=== PATIENT | female | born 1975 | race Caucasian/White ===

== ENCOUNTER → 2018-05-23 | Outpatient (CLI) | payer BC, OTHER ==
[~2018-05-23] MED LIST: BIRTH CONTROL; IBP600T1 PO; LVT.025T PO; OXYC-12 PO; TRAM50TA2 PO
--- NOTE | 2018-05-23 15:31 | Diagnostic Imaging Report ---
INDICATION: Routine screening. No prior mammograms are available for comparison. This is a baseline study. 2-D and 3-D bilateral screening mammography was performed with CAD. Both breasts are heterogeneously dense, limiting the sensitivity of mammography. There is a fairly well-circumscribed density in the medial aspect of the left breast inferiorly. Additional views are recommended. Right breast is unremarkable. No suspicious calcifications are seen. Axillae are unremarkable. IMPRESSION: BI-RADS zero Left breast density lower inner aspect. Further evaluation with additional views is recommended. ACR BI-RADS Category 0: Incomplete. (Needs additional imaging evaluation). Result letter will be mailed to the patient. Note: At least 10% of breast cancer is not imaged by mammography. Dictated by: Dictated on workstation # [id number]
== END ==
LOC: RAD 08:41
PROVIDERS: ATTEND Internal Medicine
DX: Z12.31 Encounter for screening mammogram for malignant neoplasm of breast (principal); R92.8 Other abnormal and inconclusive findings on diagnostic imaging of breast
CPT/HCPCS: 77067

== ENCOUNTER → 2018-06-11 | Outpatient (CLI) | payer BC, OTHER ==
--- NOTE | 2018-06-11 14:05 | Diagnostic Imaging Report ---
Indication: Left breast density. Patient presents for additional views. Correlation is made with recent screening study from 05/23/2018. Unilateral left 2-D and 3-D diagnostic mammography was performed including spot compression CC and MLO as well as conventional 90 degree lateral view. Left breast is heterogeneously dense, limiting the sensitivity of mammography. There is a tiny circumscribed nodule in the medial left breast separate from the density that was called back and consistent with a cyst. At the area of density this tissue appears to show normal dispersion and is most consistent with superimposed tissue. No underlying mass is seen. No suspicious calcifications are identified. IMPRESSION: BI-RADS category 2 Additional views fail to demonstrate a suspicious discrete mass. Patient may return to routine annual screening mammography. ACR BI-RADS Category 2: Benign findings. Result letter will be mailed to the patient. Note: At least 10% of breast cancer is not imaged by mammography. Dictated by: Dictated on workstation # [id number]
== END ==
LOC: RAD 13:20
PROVIDERS: ATTEND Internal Medicine
DX: R92.2 Inconclusive mammogram (principal)

== ENCOUNTER 2018-07-14 05:36 | Outpatient (CLI) | payer BC, OTHER ==
[~2018-07-14] VITALS: Ht 180.3 cm; Wt 78.0 kg
[2018-07-14] MEDS ORDERED: LEVO75TA6 PO (12:12)
== END 2018-07-14 12:16 | disposition home or self-care (01) ==
LOC: PREOP 05:36
PROVIDERS: ATTEND Specialist
DX: Z01.818 Encounter for other preprocedural examination (principal)

== ENCOUNTER 2018-07-18 06:24 | Day surgery (SDC) | payer BC, OTHER ==
[~2018-07-18] VITALS: Ht 180.3 cm; Wt 78.0 kg
[~2018-07-18 06:24] MED LIST changes: +LEVO75TA6 PO
[2018-07-18 06:31] VITALS: BP 127/86
[2018-07-18] MEDS ORDERED: MOXIFLOXACIN OPHTH SOLN 5 MG/ML 0.3 ML SYRINGE OP ONE (06:45)
[2018-07-18] MEDS ORDERED: TIMOLOL MALEATE 0.5% 5 ML (TIMOPTIC) BTL OU PRN (06:45)
[2018-07-18] MEDS ORDERED: POVIDONE (BETADINE) OPHTH SOLN 5% 30 ML OP ONE (06:45)
[2018-07-18] MEDS ORDERED: LIDOCAINE PF 1% 2 ML AMP IR PRN (06:45)
[2018-07-18] MEDS: TETRACAINE 0.5% OPHTH SOLN 4 ML BTL (SINGLE DOSE ONLY) OU PRN ×4 (06:47→07:07)
[2018-07-18] MEDS: CYCLOPENTOLATE 1% (CYCLOGYL) 2 ML DROPS OP SCH ×3 (06:55→07:07)
[2018-07-18] MEDS: PHENYLEPHRINE 10% OPHTH (NEO-SYN) 5 ML BTL OU SCH ×3 (06:55→07:07)
[2018-07-18] MEDS ORDERED: MIDAZOLAM 2 MG/2 ML (VERSED) VIAL ONE (07:13)
--- NOTE | 2018-07-18 07:30 | Ophthalmologist Pre-Op Note ---
Pre-Operative Progress Note H&P Reviewed The H&P was reviewed, patient examined and no changes noted. Date H&P Reviewed: Jul 18, 2018 Time H&P Reviewed: 07:30 Pre-Op Dx Cataract, Right Eye MATTHIEU STEWART MD Jul 18, 2018 07:30
--- NOTE | 2018-07-18 08:04 | Ophthalmology Operative Report ---
Cataract removal/placement IOL PREOPERATIVE DIAGNOSIS: Cataract Right Eye POSTOPERATIVE DIAGNOSIS: Cataract Right Eye PROCEDURE: Cataract removal and placement of posterior chamber implant, right eye SURGEON: Arnoldo Stewart ANESTHESIA: Topical with sedation COMPLICATIONS: None ESTIMATED BLOOD LOSS: Minimal DESCRIPTION OF PROCEDURE: After proper informed consent was obtained, the patient, a 42 female, was taken to the Operating Room and the right eye was anesthetized with tetracaine. The right eye was then prepped and draped in the usual manner. A wire lid speculum was placed. A paracentesis was made at the left hand position. Preservative free lidocaine was injected into the anterior chamber followed by viscoelastic. A clear corneal incision was made in the temporal position. A capsulorrhexis was preformed and the central nuclear and cortical material were removed. The posterior capsule was polished and Ryne [id number] 7.0 IOL was placed into the capsular bag. The residual viscoelastic was aspirated and balanced saline solution was injected into the anterior chamber. Moxifloxacin was injected into the anterior chamber. The wound was checked and found to be water tight. The patient tolerated the procedure well without complications. ARNOLDO STEWART MD Jul 18, 2018 08:04
[2018-07-18 08:11] VITALS: BP 123/87
[2018-07-18] MEDS ORDERED: acetaZOLAMIDE ER 500 MG CAP (DIAMOX SEQUELS) PO ONE (08:30)
--- NOTE | 2018-07-18 11:11 | Anesthesia-General Post-Op ---
MAC Patient Condition Mental Status/LOC: Same as Preop Cardiovascular: Satisfactory Nausea/Vomiting: Absent Respiratory: Satisfactory Pain: Controlled Complications: Absent Post Op Complications Complications None Follow Up Care/Instructions Patient Instructions None needed. Anesthesiology Discharge Order Discharge Order Patient is doing well, no complaints, stable vital signs, no apparent adverse anesthesia problems. No complications reported per nursing. MABEL MENA CRNA Jul 18, 2018 11:11
== END 2018-07-18 08:11 | disposition home or self-care (01) ==
LOC: SDC 06:24
PROVIDERS: ATTEND Specialist
DX: H25.11 Age-related nuclear cataract, right eye (principal); E03.9 Hypothyroidism, unspecified; Z79.899 Other long term (current) drug therapy

== ENCOUNTER 2018-07-29 05:46 | Outpatient (CLI) | payer BC, OTHER ==
[~2018-07-29] VITALS: Ht 180.3 cm; Wt 78.0 kg
== END 2018-07-29 14:35 | disposition home or self-care (01) ==
LOC: PREOP 05:46
PROVIDERS: ATTEND Specialist
DX: Z01.818 Encounter for other preprocedural examination (principal)

== ENCOUNTER 2018-08-01 06:15 | Day surgery (SDC) | payer BC, OTHER ==
[~2018-08-01] VITALS: Ht 180.3 cm; Wt 78.0 kg
[2018-08-01 06:15] VITALS: BP 113/80
--- OUTSIDE RECORDS SUMMARY | 2018-08-01 06:25 | XMS REPORT | Clinical Summary ---
Author Author User, [employer] Organization [facility] Address Unknown Phone Unavailable Allergies, Adverse Reactions, Alerts Allergy Name Reaction Description Start Date Severity Status Provider PENICILLIN Critical Active Ann Ta Conditions or Problems Problem Name Problem Code Onset Date Status Entry Date Provider Comment Standard Description Annotate THYROID NODULE 241.0 Resolved Ann Ta Nontoxic uninodular goiter HYPOTHYROIDISM, PRIMARY 244.9 Active Ann Ta Unspecified hypothyroidism WEIGHT GAIN, ABNORMAL 783.1 Active Ann Ta Abnormal weight gain OSTEOPENIA 733.90 Active Ann Ta Disorder of bone and cartilage, unspecified CERVICAL LYMPHADENOPATHY, RIGHT 785.6 Resolved Ann Ta Enlargement of lymph nodes WELL WOMAN V70.0 Active Ann Ta Routine general medical examination at a health care facility HEADACHE 784.0 Active Ann Ta Headache Medication List Medication Instructions Start Date Stop Date Generic Name NDC Status Provider Patient Instruction LEVOTHYROXINE SODIUM 75 MCG TABS 1 po daily LEVOTHYROXINE SODIUM 65703829302 Active Ann Ta PHENTERMINE HCL 37.5 MG CAPS 1 PO Daily PHENTERMINE HCL 94411128159 Active Ann Ta B COMPLETE TABS 1 PO daily B [id number]-[id number]-YV 38454029670 Active Ann Ta LOW-OGESTREL 0.3-30 MG-MCG TABS 1 PO daily NORGESTREL-ETHINYL ESTRADIOL 12675212547 No Longer Active Ann Ta BCP'S as directed BCP'S No Longer Active Ann Ta FEMCON FE 0.4-35 MG-MCG CHEW 1 po QD NORETHIN-ETH ESTRADIOL-FE 26379483348 No Longer Active Ann Ta Immunizations Vaccine Administration Date Value Standard Description Influenza vaccine given Done influenza virus vaccine, unspecified formulation Vital Signs Date Name Value Unit Range Description blood pressure, diastolic - 8462-4 75 mm[Hg] BP lucio blood pressure, systolic - 8480-6 130 mm[Hg] BP sys pulse rate E&M - 8867-4 60 /min Heart rate respiratory rate E&M - 9279-1 14 /min Resp rate temperature E&M 98.2 [degF] Body temperature weight E&M - 3141-9 186 [lb_av] Weight Measured Diagnostic Results Date Name Value Unit Range Description Clinical Lists Update: CBC,CMP,FLP,TSH,FREE T4 - Chemistry Estimated Glomerular Filtration Rate (calc) 71 mL/min/1.73m2 glucose, plasma fasting 89 mg/dL albumin, serum 4.3 g/dL alkaline phosphatase, serum 61 U/L urea nitrogen, blood 19 mg/dL calcium, serum 9.2 mg/dL chloride, serum 105 mmol/L cholesterol, serum 172 mg/dL cholesterol/HDL ratio, serum, percent 3.7 anion gap, serum 8 sodium, serum 137 mmol/L triglyceride, serum, fasting 72 mg/dL bilirubin, serum, total 0.9 mg/dL alanine aminotransferase (SGPT), serum 16 U/L aspartate aminotransferase (SGOT), serum 22 U/L protein, total, serum 7.1 g/dL potassium, serum 4.0 mmol/L LDL cholesterol, serum 112 mg/dL thyroid stimulating hormone, serum 1.25 u[iU]/mL HDL cholesterol, serum 46.0 mg/dL thyroxine, serum, free 0.81 ng/dL creatinine, serum 0.9 mg/dL carbon dioxide, venous blood 28.0 mmol/L Clinical Lists Update: CBC,CMP,FLP,TSH,FREE T4 - Hematology leukocyte count, blood 2.9 10*3/mm3 mean corpuscular volume, RBC 87 fL red blood cell distribution width 12.4 % hemoglobin, blood 13.3 g/dL platelet count 198 10*3/mm3 erythrocyte (RBC) count 4.56 10*6/mm3 hematocrit, blood 40 % Encounters Code Encounter Date Provider Facility CPT-75476 Ofc Vst, Est Level III 19:05:30 CDT Ann Ta DO, FACP CPT-71646 Ofc Vst, Est Level III 13:26:55 CDT Ann Ta DO, FACP CPT-53497 Ofc Vst, Est Level IV 13:41:00 CDT Ann Ta DO, FACP CPT-37307 Ofc Vst, Est Level III 11:49:38 CDT Ann Ta DO, FACP CPT-32965 Ofc Vst, Est Level IV 11:29:22 CDT Ann Ta DO, FACP CPT-00091 Ofc Vst, Est Level IV 10:04:42 CDT Ann Ta DO, FACP CPT-33508 Ofc Vst, Est Level III 10:04:19 CDT Ann Ta DO, FACP CPT-85049 Ofc Vst, Est Level IV 15:46:07 CDT Ann Ta DO, SCOTTP CPT-67587 Office Consult, Level III 14:30:38 CDT Ann Ta [facility] Procedures Code Procedure Name Date Entry Date Standard Description CPT-20987 Preventive, Est, (18-39) 10:29:18 CDT
--- OUTSIDE RECORDS SUMMARY | 2018-08-01 06:25 | XMS REPORT | Clinical Summary ---
Author Author User, [employer] Organization [facility] Address Unknown Phone Unavailable Allergies, Adverse Reactions, [...] MCG TABS 1 po daily LEVOTHYROXINE SODIUM 87165015997 Active Ann Ta PHENTERMINE HCL 37.5 MG CAPS 1 PO Daily PHENTERMINE HCL 12556912279 Active Ann Ta B COMPLETE TABS 1 PO daily B [id number]-ARCDKK-NU 44022713364 Active Ann Ta LOW-OGESTREL 0.3-30 MG-MCG TABS 1 PO daily NORGESTREL-ETHINYL ESTRADIOL 23177852388 No Longer Active Ann Ta BCP'S as directed BCP'S No Longer Active Ann Ta FEMCON FE 0.4-35 MG-MCG CHEW 1 po QD NORETHIN-ETH ESTRADIOL-FE 27765793380 No Longer Active Ann Ta Immunizations Vaccine [...] % Encounters Code Encounter Date Provider Facility CPT-55767 Ofc Vst, Est Level III 19:05:30 CDT Annidania Ta DO, FACP CPT-23132 Ofc Vst, Est Level III 13:26:55 CDT Annidania Ta DO, FACP CPT-20358 Ofc Vst, Est Level IV 13:41:00 CDT Ann Ta DO, FACP CPT-72838 Ofc Vst, Est Level III 11:49:38 CDT Ann Ta DO, FACP CPT-62881 Ofc Vst, Est Level IV 11:29:22 CDT Ann Ta DO, FACP CPT-18806 Ofc Vst, Est Level IV 10:04:42 CDT Ann Ta DO, FACP CPT-01931 Ofc Vst, Est Level III 10:04:19 CDT Ann Ta DO, FACP CPT-00242 Ofc Vst, Est Level IV 15:46:07 CDT Ann Ta DO, FACP CPT-51731 Office Consult, Level III 14:30:38 CDT Ann Ta [facility] Procedures Code Procedure Name Date Entry Date Standard Description CPT-22981 Preventive, Est, (18-39) 10:29:18 CDT
--- OUTSIDE RECORDS SUMMARY | 2018-08-01 06:25 | XMS REPORT | Clinical Summary ---
Author Author User, [employer] Organization [facility] [place] Address Unknown Phone Unavailable Allergies, Adverse Reactions, [...] Enlargement of lymph nodes WELL WOMAN V70.0 Resolved Ann Ta Routine general medical examination at a health care facility HEADACHE 784.0 Active Ann Ta Headache Medication List Medication Instructions Start Date Stop Date Generic Name NDC Status Provider Patient Instruction LEVOTHYROXINE SODIUM 75 MCG TABS 1 po daily LEVOTHYROXINE SODIUM 68301756273 Active Ann Ta PHENTERMINE HCL 37.5 MG CAPS 1 PO Daily PHENTERMINE HCL 78874498423 Active Ann Ta B COMPLETE TABS 1 PO daily B [id number]-[id number] 76517592711 Active Ann Ta LOW-OGESTREL 0.3-30 MG-MCG TABS 1 PO daily NORGESTREL-ETHINYL ESTRADIOL 20151520819 No Longer Active Ann Ta BCP'S as directed BCP'S No Longer Active Ann Ta FEMCON FE 0.4-35 MG-MCG CHEW 1 po QD NORETHIN-ETH ESTRADIOL-FE 31627840280 No Longer Active Ann Ta Immunizations Vaccine Administration Date Value Standard Description Influenza vaccine given Done influenza virus vaccine, unspecified formulation Vital Signs Date Name Value Unit Range Description blood pressure, diastolic - 8462-4 70 mm[Hg] BP lucio blood pressure, systolic - 8480-6 110 mm[Hg] BP sys pulse rate E&M - 8867-4 70 /min Heart rate respiratory rate E&M - 9279-1 14 /min Resp rate temperature E&M 98.4 [degF] Body temperature weight E&M - 3141-9 175 [lb_av] Weight Measured blood pressure, diastolic - 8462-4 75 mm[Hg] [...] % Encounters Code Encounter Date Provider Facility CPT-56717 Ofc Vst, Est Level III 21:31:20 CDT Ann Ta DO, FACP CPT-48842 Ofc Vst, Est Level III 19:05:30 CDT Ann Ta DO, FACP CPT-99163 Ofc Vst, Est Level III 13:26:55 CDT Ann Ta DO, FACP CPT-57387 Ofc Vst, Est Level IV 13:41:00 CDT Ann Xiao Ta Ann S Ta, DO, FACP CPT-44741 Ofc Vst, Est Level III 11:49:38 CDT Ann Ta DO, FACP CPT-84113 Ofc Vst, Est Level IV 11:29:22 CDT Ann Ta DO, FACP CPT-34616 Ofc Vst, Est Level IV 10:04:42 CDT Ann Ta DO, FACP CPT-07935 Ofc Vst, Est Level III 10:04:19 CDT Ann Ta DO, FACP CPT-00342 Ofc Vst, Est Level IV 15:46:07 CDT Ann Ta DO, FACP CPT-51101 Office Consult, Level III 14:30:38 CDT Ann Ta [facility] [place] Procedures Code Procedure Name Date Entry Date Standard Description CPT-72850 Preventive, Est, (18-39) 10:29:18 CDT
[2018-08-01] MEDS ORDERED: POVIDONE (BETADINE) OPHTH SOLN 5% 30 ML OP ONE (06:30)
[2018-08-01] MEDS ORDERED: TIMOLOL MALEATE 0.5% 5 ML (TIMOPTIC) BTL OU PRN (06:30)
[2018-08-01] MEDS ORDERED: LIDOCAINE PF 1% 2 ML AMP IR PRN (06:30)
[2018-08-01] MEDS ORDERED: MOXIFLOXACIN OPHTH SOLN 5 MG/ML 0.3 ML SYRINGE OP ONE (06:30)
[2018-08-01] MEDS: TETRACAINE 0.5% OPHTH SOLN 4 ML BTL (SINGLE DOSE ONLY) OU PRN ×4 (06:31→07:00)
[2018-08-01] MEDS: CYCLOPENTOLATE 1% (CYCLOGYL) 2 ML DROPS OP SCH ×3 (06:40→07:00)
[2018-08-01] MEDS: PHENYLEPHRINE 10% OPHTH (NEO-SYN) 5 ML BTL OU SCH ×3 (06:40→07:00)
[2018-08-01] MEDS ORDERED: MIDAZOLAM 2 MG/2 ML (VERSED) VIAL ONE (07:11)
--- NOTE | 2018-08-01 07:31 | Ophthalmologist Pre-Op Note ---
Pre-Operative Progress Note H&P Reviewed The H&P was reviewed, patient examined and no changes noted. Date H&P Reviewed: Aug 01, 2018 Time H&P Reviewed: 07:30 Pre-Op Dx Cataract, Left Eye MATTHIEU STEWART MD Aug 01, 2018 07:31
--- NOTE | 2018-08-01 07:59 | Ophthalmology Operative Report ---
Cataract removal/placement IOL PREOPERATIVE DIAGNOSIS: Cataract Left Eye POSTOPERATIVE DIAGNOSIS: Cataract Left Eye PROCEDURE: Cataract removal and placement of posterior chamber implant, left eye SURGEON: Arnoldo Stewart ANESTHESIA: Topical with sedation COMPLICATIONS: None ESTIMATED BLOOD LOSS: Minimal DESCRIPTION OF PROCEDURE: After proper informed consent was obtained, the patient, a 42 female, was taken to the Operating Room and the left eye was anesthetized with tetracaine. The left eye was then prepped and draped in the usual manner. A wire lid speculum was placed. A paracentesis was made at the left hand position. Preservative free lidocaine was injected into the anterior chamber followed by viscoelastic. A clear corneal incision was made in the temporal position. A capsulorrhexis was preformed and the central nuclear and cortical material were removed. The posterior capsule was polished and an Ryne [id number] 9.0 was placed into the capsular bag. The residual viscoelastic was aspirated and balanced saline solution was injected into the anterior chamber. Moxifloxacin was injected into the anterior chamber. The wound was checked and found to be water tight. The patient tolerated the procedure well without complications. ARNOLDO STEWART MD Aug 01, 2018 07:59
[2018-08-01 08:04] VITALS: BP 124/91
[2018-08-01] MEDS ORDERED: acetaZOLAMIDE ER 500 MG CAP (DIAMOX SEQUELS) PO ONE (08:30)
--- NOTE | 2018-08-01 12:36 | Anesthesia-General Post-Op ---
MAC Patient Condition Mental Status/LOC: Same as Preop Cardiovascular: Satisfactory Nausea/Vomiting: Absent Respiratory: Satisfactory Pain: Controlled Complications: Absent Post Op Complications Complications None Follow Up Care/Instructions Patient Instructions None needed. Anesthesiology Discharge Order Discharge Order Patient is doing well, no complaints, stable vital signs, no apparent adverse anesthesia problems. No complications reported per nursing. RAJEEV OGDEN CRNA Aug 01, 2018 12:36
== END 2018-08-01 08:05 | disposition home or self-care (01) ==
LOC: SDC 06:15
PROVIDERS: ATTEND Specialist
DX: H25.12 Age-related nuclear cataract, left eye (principal); E03.9 Hypothyroidism, unspecified; Z79.899 Other long term (current) drug therapy

== ENCOUNTER → 2018-11-03 | Outpatient (CLI) | payer BC, OTHER ==
--- NOTE | 2018-11-03 19:33 | Diagnostic Imaging Report ---
INDICATION: Right ankle pain x1 week. TECHNIQUE: Three views of the right ankle. CORRELATION STUDY: None. FINDINGS: The bony alignment is anatomic. The talar dome is intact. The ankle mortise is maintained. Slight sclerosis about the distal lateral tibia may be reflective of previous fibrous cortical defect of no significance. Accessory ossicle adjacent to the cuboid. There is no acute fracture or dislocation. Soft tissues are unremarkable. IMPRESSION: Negative for acute bony abnormality of the ankle. Dictated by: Dictated on workstation # [id number]
--- NOTE | 2018-11-03 19:33 | Diagnostic Imaging Report ---
INDICATION: Distal leg pain x1 week. TECHNIQUE: AP and lateral views of the right tibia and fibula. CORRELATION STUDY: None. FINDINGS: The tibia and fibula are intact. There is no evidence for acute fracture. Very slight cortical thickening is suggested about the distal lateral tibia, which may be reflective of previous fibrous cortical defect, appears of no clinical significance. Limited visualized portions of the knee and ankle are unremarkable. Soft tissues are unremarkable. IMPRESSION: 1. Negative for acute bony abnormality of the leg. Dictated by: Dictated on workstation # [id number]
== END ==
LOC: RAD 18:01
PROVIDERS: ATTEND Chiropractor
DX: M25.571 Pain in right ankle and joints of right foot (principal); M79.661 Pain in right lower leg
CPT/HCPCS: 73590; 73610

== ENCOUNTER → 2020-01-11 | Outpatient (CLI) | payer BC, OTHER ==
[~2020-01-11] MED LIST changes: -TRAM50TA2 PO; +TRM50T PO
--- NOTE | 2020-01-12 13:14 | Diagnostic Imaging Report ---
INDICATION: Routine screening. COMPARISON: 05/23/2018. TECHNIQUE: 2D and 3D bilateral screening mammography was performed with CAD. FINDINGS: Both breasts remain heterogeneously dense, limiting the sensitivity of mammography. Circumscribed densities are noted, suggestive of cysts. No dominant mass or malignant appearing microcalcifications are seen. The axillae are unremarkable. IMPRESSION: No mammographic features suspicious for malignancy are identified. ACR BI-RADS Category 2: Benign findings. Result letter will be mailed to the patient. Note: At least 10% of breast cancer is not imaged by mammography. Dictated by: Dictated on workstation # [id number]
== END ==
LOC: RAD 15:29
PROVIDERS: ATTEND Internal Medicine
DX: Z12.31 Encounter for screening mammogram for malignant neoplasm of breast (principal)
CPT/HCPCS: 77063; 77067

== ENCOUNTER 2020-10-04 05:29 | Outpatient (RCR) | payer BC ==
[~2020-10-04] VITALS: Ht 180.3 cm; Wt 81.8 kg
== END 2020-10-04 09:00 | disposition home or self-care (01) ==
LOC: PREOP 05:29
PROVIDERS: ATTEND Specialist
DX: Z01.818 Encounter for other preprocedural examination (principal)

== ENCOUNTER 2020-10-07 06:53 | Day surgery (SDC) | payer BC, OTHER ==
[~2020-10-07] VITALS: Ht 180.3 cm; Wt 81.8 kg
[2020-10-07 07:05] VITALS: BP 140/91
[2020-10-07] MEDS: TETRACAINE 0.5% OPHTH SOLN 4 ML BTL (SINGLE DOSE ONLY) OU PRN ×3 (07:12→07:20)
[2020-10-07] MEDS ORDERED: TROPICAMIDE 1% OPH SOLN (MYDRIACYL) 15 ML BTL OU PRN (07:15)
[2020-10-07] MEDS ORDERED: PHENYLEPHRINE 10% OPHTH (NEO-SYN) 5 ML BTL OU PRN (07:15)
--- NOTE | 2020-10-07 07:46 | Ophthalmologist Pre-Op Note ---
Pre-Operative Progress Note H&P Reviewed The H&P was reviewed, patient examined and no changes noted. Date H&P Reviewed: Oct 07, 2020 Time H&P Reviewed: 07:20 Pre-Op Dx Secondary Cataract, Bilateral Eyes MATTHIEU STEWART MD Oct 07, 2020 07:46
--- NOTE | 2020-10-07 07:47 | Ophthalmology Operative Report ---
YAG Capsulotomy PREOPERATIVE DIAGNOSIS: Secondary Cataract Bilateral POSTOPERATIVE DIAGNOSIS: Secondary Cataract Bilateral PROCEDURE: YAG Capsulotomy, Bilateral SURGEON: Arnoldo Stewart ANESTHESIA: Topical anesthesia COMPLICATIONS: None ESTIMATED BLOOD LOSS: Minimal DESCRIPTION OF PROCEDURE: After proper informed consent was obtained, the patient's, a 44 female , received one drop of Tropicamide and one drop of Tetracaine in each eye. The patient was then placed at the YAG laser and using a power of [ 3.2] millijoules and bursts [ 15] right eye and [ 17] left eye were used to fashion a central capsulotomy. The patient tolerated the procedure well without complications. ARNOLDO STEWART MD Oct 07, 2020 07:47
== END 2020-10-07 07:28 | disposition home or self-care (01) ==
LOC: SDC 06:53
PROVIDERS: ATTEND Specialist
DX: H26.493 Other secondary cataract, bilateral (principal); E03.9 Hypothyroidism, unspecified; Z79.899 Other long term (current) drug therapy; Z88.0 Allergy status to penicillin; Z88.5 Allergy status to narcotic agent; Z88.8 Allergy status to other drugs, medicaments and biological substances; Z90.711 Acquired absence of uterus with remaining cervical stump; Z79.890 Hormone replacement therapy

== ENCOUNTER → 2021-04-07 | Outpatient (CLI) | payer BC ==
--- NOTE | 2021-04-10 09:08 | Diagnostic Imaging Report ---
INDICATION: Routine screening. COMPARISON: 01/11/2020 and 05/23/2018. TECHNIQUE: 2D and 3D bilateral screening mammography was performed with CAD. FINDINGS: Both breasts are heterogeneously dense, limiting the sensitivity of mammography. The parenchymal pattern is stable. No mass or malignant appearing microcalcifications are seen. The axillae are unremarkable. IMPRESSION: No mammographic features suspicious for malignancy are identified. ACR BI-RADS Category 1: Negative. Result letter will be mailed to the patient. Note: At least 10% of breast cancer is not imaged by mammography. Dictated by: Dictated on workstation # [id number]
== END ==
LOC: RAD 15:15
PROVIDERS: ATTEND Internal Medicine
DX: Z12.31 Encounter for screening mammogram for malignant neoplasm of breast (principal)
CPT/HCPCS: 77063; 77067

== ENCOUNTER → 2022-05-01 | Outpatient (CLI) | payer BC ==
--- NOTE | 2022-05-01 18:38 | Diagnostic Imaging Report ---
Indication: Routine screening. Comparison is made with prior mammograms 04/07/2021 and 01/11/2020. 2-D and 3-D bilateral screening mammography was performed with CAD. Both breasts are heterogeneously dense, limiting the sensitivity of mammography. Circumscribed density in the upper slightly inner right breast posterior depth on the CC view appears stable. Left breast is stable. No new mass or malignant-appearing microcalcifications are seen. Axillae are unremarkable. IMPRESSION: BI-RADS Category 2 No mammographic features suspicious for malignancy are identified. ACR BI-RADS Category 2: Benign findings. Result letter will be mailed to the patient. Note: At least 10% of breast cancer is not imaged by mammography. Dictated by: Dictated on workstation # [id number]
== END ==
LOC: RAD 14:59
PROVIDERS: ATTEND Internal Medicine
DX: Z12.31 Encounter for screening mammogram for malignant neoplasm of breast (principal)
CPT/HCPCS: 77063; 77067

== ENCOUNTER → 2023-05-27 | Outpatient (CLI) | payer BC ==
--- NOTE | 2023-05-28 09:30 | Diagnostic Imaging Report ---
EXAMINATION: 3D bilateral screening mammogram with CAD. INDICATION: Screening. COMPARISON: This study was compared to the prior exams of 05/01/2022, 04/07/2021, and 01/11/2020. PERSONAL HISTORY: At this time, there are no current complaints. TECHNIQUE: 3D bilateral screening mammogram. The current study was also evaluated with a Computer Aided Detection (CAD) system. FINDINGS: The fibroglandular tissue in both breasts is heterogeneously dense. This does limit the sensitivity of this exam. Overall, there does not appear to have been any significant change when compared to the prior study. No primary or secondary sign of malignancy is noted. IMPRESSION: There is no radiographic evidence for malignancy. ACR BI-RADS Category 1: Negative. Result letter will be mailed to the patient. Note: At least 10% of breast cancer is not imaged by mammography. Dictated by: Dictated on workstation # [id number]
== END ==
LOC: RAD 15:30
PROVIDERS: ATTEND Internal Medicine
DX: Z12.31 Encounter for screening mammogram for malignant neoplasm of breast (principal)
CPT/HCPCS: 77063; 77067